=== PATIENT | female | born 1980 | race Asian ===

== ENCOUNTER 2021-03-31 22:55 | Emergency (ER) | payer OTHER ==
[2021-03-31 23:20] VITALS: BP 119/88; PULSE 91; TEMP 97.7; BMI 28.3
[2021-04-01] MEDS ORDERED: LIDOCAINE 2%/EPINEPHRINE 1:100000 (50 ML MD VIAL) INF ONE (02:22)
[2021-04-01] MEDS ORDERED: LIDOCAINE 1%/EPI 1:100000 (20 ML MULTI DOSE VIAL) ONE (02:30)
[2021-04-01] MEDS ORDERED: CLINDAMYCIN HCL 300 MG CAPSULE PO ONE (03:08)
== END 2021-04-01 03:39 | disposition home or self-care (01) ==
LOC: JER 22:55
DX: S90.851A Superficial foreign body, right foot, initial encounter (principal); W26.8XXA Contact with other sharp object(s), not elsewhere classified, initial encounter; Y93.89 Activity, other specified
CPT/HCPCS: 73630-TC-RT-FY; 99283-25

== ENCOUNTER 2021-09-25 06:03 | Emergency (ER) | payer OTHER ==
[2021-09-25 06:51] VITALS: BP 130/89; PULSE 93; TEMP 98.4; BMI 26.4
[2021-09-25] MEDS ORDERED: ACETAMINOPHEN 325 MG TABLET (FP) PO ONE (08:29)
[2021-09-25] MEDS ORDERED: FAMOTIDINE 10 MG TABLET PO ONE (08:29)
[2021-09-25] MEDS ORDERED: SUCRALFATE 1 GM TABLET (FP) PO ONE (08:29)
[2021-09-25] MEDS ORDERED: MAG HYDROX/AL HYDROX/SIMETH 30 ML UNIT-DOSE CUP PO ONE (08:29)
[2021-09-25] MEDS ORDERED: ONDANSETRON *ODT* 4 MG TABLET SL ONE (08:30)
[2021-09-25] MEDS ORDERED: FAMOTIDINE 10 MG TABLET ONE (09:27)
[2021-09-25] MEDS ORDERED: MAG HYDROX/AL HYDROX/SIMETH 30 ML UNIT-DOSE CUP ONE (09:27)
[2021-09-25] MEDS ORDERED: ONDANSETRON *ODT* 4 MG TABLET ONE (09:27)
[2021-09-25] MEDS ORDERED: SUCRALFATE 1 GM TABLET (FP) ONE (09:27)
[2021-09-25] MEDS ORDERED: ACETAMINOPHEN 325 MG TABLET (FP) ONE (09:27)
[2021-09-25 10:37] LABS: BASO % 0.8 % (0-2.0); EOS % 1.5 % (0-4.5); HEMATOCRIT 30.8 % (32.4-45.2); LYMPH % 14.4 % (8-40); MCH 25.2 pg (25.7-33.7); MCHC 32.6 g/dl (32.0-36.0); MEAN CELL VOLUME 77.2 fl (80-96); MEAN PLT VOLUME 9.8 fl (7.5-11.1); MONO % 6.7 % (3.8-10.2); NEUT % 76.6 % (42.8-82.8); PLATELET COUNT 297 10^3/uL (134-434); RBC 3.99 M/mm3 (3.60-5.2); RDW 16.5 % (11.6-15.6); WHITE BLOOD COUNT 13.1 K/mm3 (4.0-10.0)
[2021-09-25 10:53] LABS: ALBUMIN 3.6 g/dl (3.4-5.0); BLOOD UREA NITROGEN 7.3 mg/dL (7-18); CALCIUM 9.2 mg/dL (8.5-10.1)
[2021-09-25 10:56] LABS: CREATININE 0.6 mg/dL (0.55-1.3)
[2021-09-25 10:57] LABS: BILIRUBIN,TOTAL 1.3 mg/dL (0.2-1); TOT PROT 8.1 g/dl (6.4-8.2)
== END 2021-09-25 16:26 | disposition short-term general hospital (02) ==
LOC: JER 06:03
DX: C78.7 Secondary malignant neoplasm of liver and intrahepatic bile duct (principal)
CPT/HCPCS: 36415; 74177-TC; 76705-TC; 80053; 83690; 84703; 85025; 99285-25; Q0162; Q9967